=== PATIENT | female | born 1980 | race Caucasian/White ===

== ENCOUNTER 2017-06-23 10:33 | Emergency (ER) | payer OTHER, SELFPAY ==
[2017-06-23 10:52] VITALS: O2SAT 100
--- NOTE | 2017-06-23 12:00 | C.PDOC ---
History Of Present Illness 36 y/o female presents to ED with complaints of low abdominal "bloating" pain intermittently for 2 years. Patient states she tried "lots of pills" and for 2 weeks has been on Amoxicillin, Clarithromycin and Omeprazole for suspected H. pylori but symptoms persist. Patient reports hard bowel movement yesterday and states "I feel bloated like when I was ". Patient denies fever, chills , vomiting, diarrhea or any other complaints at this time. Time Seen by Provider: 06/23/17 11:02 Chief Complaint (Nursing): Abdominal Pain History Per: Patient History/Exam Limitations: no limitations Onset/Duration Of Symptoms: Intermittent Episodes (for 2 years) Current Symptoms Are (Timing): Still Present Past Medical History Reviewed: Historical Data, Nursing Documentation, Vital Signs Vital Signs: Last Vital Signs Temp 97.3 F L 06/23/17 10:47 Pulse 82 06/23/17 10:47 Resp 18 06/23/17 10:47 BP 119/77 06/23/17 10:47 Pulse Ox 100 06/23/17 16:01 - Medical History PMH: Gastritis Surgical History: No Surg Hx - [facility] Procedures BILAT TUBAL DIVISION NEC (01/18/13) LOW CERVICAL (01/18/13) Family History: States: No Known Family Hx - Social History Hx Tobacco Use: No Hx Alcohol Use: No Hx Substance Use: No - Immunization History Hx Tetanus Toxoid Vaccination: No Hx Influenza Vaccination: No Hx Pneumococcal Vaccination: No Review Of Systems Constitutional: Negative for: Fever, Chills Gastrointestinal: Positive for: Abdominal Pain. Negative for: Nausea, Vomiting , Diarrhea Skin: Negative for: Rash Neurological: Negative for: Weakness, Numbness Physical Exam - Physical Exam Appears: Non-toxic, No Acute Distress Skin: Normal Color, Warm, Dry Head: Atraumatic, Normacephalic Eye(s): bilateral: Normal Inspection, EOMI Nose: Normal Oral Mucosa: Moist Neck: Normal ROM, Supple Chest: Symmetrical Cardiovascular: Rhythm Regular Respiratory: Normal Breath Sounds, No Accessory Muscle Use, No Rales, No Rhonchi , No Wheezing Gastrointestinal/Abdominal: Soft, No Tenderness (no tender on deep palpation), No Guarding, No Rebound Back: No CVA Tenderness Extremity: Normal ROM, Capillary Refill (<2 seconds) Neurological/Psych: Oriented x3 ED Course And Treatment - Laboratory Results Result Diagrams: 06/23/17 12:04 06/23/17 12:04 O2 Sat by Pulse Oximetry: 100 (RA) Pulse Ox Interpretation: Normal Progress Note: CT scan abd/pelvis ordered, Bloow work and UA ordered. On re- evalaution, patient is resting comfortably, in no distress, abdomen is soft, no rebound or guarding, and is tolerating PO. Patient has no signs or symptoms to suggest surgical pathology. Patient was advised to follow up without fail with physician/clinic or to return to the ER for reevaluation in 1-2 days. Disposition - Disposition Disposition: HOME/ ROUTINE Disposition Time: 15:52 Condition: STABLE Additional Instructions: Follow up with primary medical doctor in 1-3 days without fail for further evaluation. Return to the emergency department at any time if symptoms persist or worsen. Instructions: Acute Abdominal Pain (ED) Forms: [employer] (Sammarinese) - Clinical Impression Clinical Impression: Abdominal pain - PA / ATTENDANT ARCADE / Resident Statement MD/DO has reviewed & agrees with the documentation as recorded. - Scribe Statement The provider has reviewed the documentation as recorded by the Scribadelaide Rodríguez All medical record entries made by the Kristinaibadelaide were at my direction and personally dictated by me. I have reviewed the chart and agree that the record accurately reflects my personal performance of the history, physical exam, medical decision making, and the department course for this patient. I have also personally directed, reviewed, and agree with the discharge instructions and disposition.
[2017-06-23 12:08] LABS: BASO # 0.1 K/uL (0.0-0.2); BASO % 0.7 % (0.0-2.0); EOS # 0.1 K/uL (0.0-0.7); EOS % 1.2 % (0.0-4.0); HEMOGLOBIN 12.2 g/dL (11.0-16.0); LYMPH # 2.3 K/uL (1.0-4.3); LYMPH % 30.6 % (20.0-40.0); MEAN CORPUSCULAR HEMOGLOBIN 25.5 pg (27.0-31.0); MEAN CORPUSCULAR HGB CONC 33.7 g/dL (33.0-37.0); MEAN PLATELET VOLUME 8.8 fL (7.2-11.7); MONO # 0.6 K/uL (0.0-0.8); MONO % 8.2 % (0.0-10.0); NEUT # 4.5 K/uL (1.8-7.0); NEUT % 59.3 % (50.0-75.0); RBC 4.77 Mil/uL (3.80-5.20); RED CELL DISTRIBUTION WIDTH 14.8 % (11.5-14.5); WHITE BLOOD COUNT 7.5 K/uL (4.8-10.8)
[2017-06-23 12:09] LABS: MEAN CELL VOLUME 75.6 fL (81.0-99.0)
[2017-06-23 12:19] LABS: HCG,QUALITATIVE URINE NEGATIVE (NEGATIVE)
[2017-06-23 12:20] LABS: SQUAMOUS EPITHIAL 5 /hpf (0-5); URINE BILIRUBIN NEGATIVE (NEGATIVE); URINE BLOOD NEGATIVE (NEGATIVE); URINE CLARITY Clear (Clear); URINE COLOR Yellow (YELLOW); URINE GLUCOSE (UA) NORMAL (Normal); URINE LEUKOCYTE ESTERASE NEG Leu/uL (Negative); URINE NITRATE NEGATIVE (NEGATIVE); URINE PROTEIN NEGATIVE (NEGATIVE); URINE UROBILINOGEN NORMAL mg/dL (0.2-1.0)
[2017-06-23 12:30] LABS: ALB/GLOB RATIO 1.2 (1.0-2.1); ALBUMIN 4.3 g/dL (3.5-5.0); ALT/SGPT 35 U/L (9-52); AST/SGOT 24 U/L (14-36); BLOOD UREA NITROGEN 12 mg/dL (7-17); CALCIUM 8.6 mg/dl (8.6-10.4); GFR AFRICAN-AMERICAN > 60; GFR NON-AFRICAN AMERICAN > 60; LIPASE 326 U/L (23-300)
[2017-06-23] MEDS ORDERED: Iodixanol 320 MG/ML 100 ML BOTTLE IV ONE (14:49)
--- NOTE | 2017-06-23 15:47 | CT ---
PROCEDURE: CT Abdomen and Pelvis with contrast HISTORY: pain COMPARISON: Abdominal ultrasound performed 05/02/15 TECHNIQUE: Contrast dose: 100 mL Visipaque Radiation dose: Total exam DLP = 369.91 mGy-cm. This CT exam was performed using one or more of the following dose reduction techniques: Automated exposure control, adjustment of the mA and/or kV according to patient size, and/or use of iterative reconstruction technique. FINDINGS: LOWER THORAX: No visible consolidation, pleural effusion, or pneumothorax. LIVER: Unremarkable. GALLBLADDER AND BILE DUCTS: Unremarkable. PANCREAS: Unremarkable. SPLEEN: Unremarkable. ADRENALS: Unremarkable. KIDNEYS AND URETERS: The kidneys enhance symmetrically. No hydronephrosis or obstructing calculus identified. VASCULATURE: No aortic aneurysm. BOWEL: Stomach is nondistended. Lack of oral contrast limits evaluation for bowel pathology. Bowel loops appear within normal limits of caliber without evidence of obstruction. APPENDIX: The appendix is not identified. No secondary signs of acute appendicitis identified. PERITONEUM: No significant free fluid. No definite free air. LYMPH NODES: No bulky adenopathy identified. BLADDER: Unremarkable. REPRODUCTIVE: Uterus is present. Probable 16 mm left ovarian cyst. BONES: No acute osseous abnormality is detected. OTHER FINDINGS: None. IMPRESSION: Probable 16 mm left ovarian cyst.
[2017-06-23 16:16] VITALS: BP 100/65; PULSE 92; RESP 20; TEMP 97.7
== END 2017-06-23 17:07 | disposition home or self-care (01) ==
LOC: C.ER 10:33
DX: R10.9 Unspecified abdominal pain (principal)
CPT/HCPCS: 74177; 80053; 81001; 83690; 84703; 85025; 99285; Q9967

== ENCOUNTER 2018-02-11 12:57 | Emergency (ER) | payer OTHER ==
[2018-02-11 13:07] VITALS: RESP 18; O2SAT 100
[2018-02-11] MEDS ORDERED: Naproxen 550 mg Tab PO STA (13:27)
--- NOTE | 2018-02-11 13:32 | C.PDOC ---
History Of Present Illness 37 yo female with PMH gastritis came to the ER for intermittent back pain for the last week. Pain is primarily on the right side and radiates down the leg occasionally. Pt notes that she has had chronic back pain for 5+ years, but in the last week it has been more persistent. She rests or applies a spray to the area with transient improvement. Denies urinary frequency, dysuria, trauma, weakness, abdominal pain, or change in sensation. Time Seen by Provider: 02/11/18 13:08 Chief Complaint (Nursing): Back Pain History Per: Patient History/Exam Limitations: no limitations Onset/Duration Of Symptoms: Intermittent Episodes Current Symptoms Are (Timing): Still Present Past Medical History Vital Signs: Last Vital Signs Temp 98.2 F 02/11/18 14:26 Pulse 88 02/11/18 14:26 Resp 18 02/11/18 14:26 BP 126/84 02/11/18 14:26 Pulse Ox 100 02/11/18 14:26 - Medical History PMH: Gastritis - [facility] Procedures BILAT TUBAL DIVISION NEC (01/18/13) LOW CERVICAL (01/18/13) Family History: States: Unknown Family Hx - Social History Hx Tobacco Use: No Hx Alcohol Use: No Hx Substance Use: No - Immunization History Hx Tetanus Toxoid Vaccination: No Hx Influenza Vaccination: No Hx Pneumococcal Vaccination: No Review Of Systems Except As Marked, All Systems Reviewed And Found Negative. Musculoskeletal: Positive for: Back Pain Physical Exam - Physical Exam Appears: Well, Non-toxic, No Acute Distress Skin: Normal Color, Warm, Dry Head: Atraumatic, Normacephalic Eye(s): bilateral: Normal Inspection, EOMI Nose: Normal Oral Mucosa: Moist Neck: Normal, Normal ROM, Supple Chest: Symmetrical Respiratory: No Accessory Muscle Use Gastrointestinal/Abdominal: Normal Exam, Soft, No Tenderness Back: No CVA Tenderness, No Vertebral Tenderness, Paraspinal Tenderness ((+) right sided paralumbar tenderness) Extremity: Normal ROM Extremity: Bilateral: Atraumatic Neurological/Psych: Oriented x3, Normal Speech Gait: Steady ED Course And Treatment O2 Sat by Pulse Oximetry: 100 - Other Rad ls xr X-Ray: Viewed By Me, Read By Radiologist Interpretation: Accession No. : [id number]. Patient Name / ID : RENETTA CRAIN / [id number]. Exam Date : 02/11/2018 13:59:31 ( Approved ). Study Comment : Sex / Age : F / 37Y. Creator : Stalin Coates MD. Dictator : Stalin Coates MD. Invasive Physician : [employer] Operator : Stalin Coates MD. Approver2 : Report Date : 02/11/2018 14:17:42. My Comment : . Date of service: 02/11/2018. PROCEDURE: Radiographs of the Lumbar Spine. HISTORY: pain. COMPARISON: Correlation made to CT scan of the abdomen and pelvis dated 06/23/2017. FINDINGS: BONES: Normal alignment. No listhesis. No fracture. DISC SPACES: Unremarkable. OTHER FINDINGS: None. IMPRESSION: Unremarkable radiographs of the lumbar spine. Progress Note: Naproxen oredered. On reassessment, patient is resting comfortably, with improvement of back pain. Patient remains afebrile, with no bony tenderness, extremity numbness or weakness, or abdominal pain. Patient is ambulatory in the emergency department with no signs of discomfort. Patient was advised to follow up with physician/clinic in 1-2 days. Disposition - Disposition Referrals: [facility] [Outside] Disposition: HOME/ ROUTINE Disposition Time: 13:27 Condition: STABLE Additional Instructions: Rest and ice the area. Follow up with your doctor in 1-2 days. Return to ER if symptoms persist or worsen. Prescriptions: Naproxen [Naprosyn] 1 tab PO BID PRN #20 tab PRN Reason: Pain Instructions: Sciatica (DC) Forms: [employer] (Panamanian) - Clinical Impression Clinical Impression: Sciatica
[2018-02-11 13:51] LABS: HCG,QUALITATIVE URINE NEGATIVE (NEGATIVE)
[2018-02-11 13:54] LABS: SQUAMOUS EPITHIAL 6 /hpf (0-5); URINE BILIRUBIN NEGATIVE (NEGATIVE); URINE BLOOD NEGATIVE (NEGATIVE); URINE CLARITY Hazy (Clear); URINE COLOR Yellow (YELLOW); URINE GLUCOSE (UA) NORMAL (Normal); URINE LEUKOCYTE ESTERASE NEG Leu/uL (Negative); URINE PROTEIN NEGATIVE (NEGATIVE); URINE UROBILINOGEN NORMAL mg/dL (0.2-1.0)
[2018-02-11] MEDS ORDERED: Naproxen 550 mg Tab PO ONE (14:05)
--- NOTE | 2018-02-11 14:19 | RAD ---
Date of service: 02/11/2018 PROCEDURE: Radiographs of the Lumbar Spine. HISTORY: pain COMPARISON: Correlation made to CT scan of the abdomen and pelvis dated 06/23/2017. FINDINGS: BONES: Normal alignment. No listhesis. No fracture. DISC SPACES: Unremarkable. OTHER FINDINGS: None. IMPRESSION: Unremarkable radiographs of the lumbar spine.
[2018-02-11 14:26] VITALS: BP 126/84; PULSE 88; TEMP 98.2
== END 2018-02-11 14:25 | disposition home or self-care (01) ==
LOC: C.ER 12:57
DX: M54.30 Sciatica, unspecified side (principal)

== ENCOUNTER 2018-09-23 10:52 | Outpatient (CLI) | payer OTHER | END 2018-09-23 10:53 | disposition home or self-care (01) | LOC: C.RADH 10:52 | DX: M25.561 Pain in right knee (principal) ==